=== PATIENT | female | born 1945 | race Hispanic/Latino ===

== ENCOUNTER 2017-10-19 09:12 | Outpatient (CLI) | payer MEDICARE | END 2017-10-19 09:13 | disposition home or self-care (01) | LOC: BICMAMMO 09:12 | PROVIDERS: ATTEND Internal Medicine | DX: Z13.820 Encounter for screening for osteoporosis (principal); Z78.0 Asymptomatic menopausal state; M81.0 Age-related osteoporosis without current pathological fracture | CPT/HCPCS: 77080 ==

== ENCOUNTER 2019-12-26 08:06 | Outpatient (CLI) | payer MEDICARE ==
--- NOTE | 2019-12-26 09:20 | BD ---
DEXA BONE MINERAL DENSITY STUDY: HISTORY: Osteoporosis screening. COMPARISON: None. FINDINGS: Lumbar Spine: BMD (g/cm2) L1 1.230 T-Score: 2.2 4.4 L2 1.345 T-Score: 2.9 5.3 L3 1.476 T-Score: 3.6 6.1 L4 1.358 T-Score: 2.7 5.4 L1-L4 1.353 T-Score: 0.8 5.3 Left: Femoral Neck: 0.553 T-Score: -2.7 -0.6 Total Femur: 0.832 T-Score: -0.9 0.9 Impression: Osteoporosis with elevated fracture risk. POS: [facility]
== END 2019-12-26 08:07 | disposition home or self-care (01) ==
LOC: BICMAMMO 08:06
PROVIDERS: ATTEND Internal Medicine
DX: M81.0 Age-related osteoporosis without current pathological fracture (principal)
CPT/HCPCS: 77080